=== PATIENT | female | born 1945 | race Caucasian/White ===

== ENCOUNTER → 2018-02-17 | Outpatient (CLI) | payer MEDICARE | END | disposition home or self-care (01) | LOC: RAH 15:21 | PROVIDERS: ATTEND Internal Medicine | DX: Z12.31 Encounter for screening mammogram for malignant neoplasm of breast (principal) | CPT/HCPCS: 77067 ==

== ENCOUNTER → 2018-03-27 | Outpatient (CLI) | payer MEDICARE | END | disposition home or self-care (01) | LOC: RAH 10:51 | PROVIDERS: ATTEND Internal Medicine | DX: M47.895 Other spondylosis, thoracolumbar region (principal) | CPT/HCPCS: 71046 ==

== ENCOUNTER → 2018-11-21 | Outpatient (CLI) | payer MEDICARE | END | disposition home or self-care (01) | LOC: RAH 10:33 | PROVIDERS: ATTEND Internal Medicine | DX: M47.812 Spondylosis without myelopathy or radiculopathy, cervical region (principal); M85.88 Other specified disorders of bone density and structure, other site; M25.78 Osteophyte, vertebrae; M48.02 Spinal stenosis, cervical region | CPT/HCPCS: 72040 ==

== ENCOUNTER → 2019-06-01 | Outpatient (CLI) | payer MEDICARE, OTHER | END | disposition home or self-care (01) | LOC: RAH 09:46 | PROVIDERS: ATTEND Internal Medicine | DX: Z12.31 Encounter for screening mammogram for malignant neoplasm of breast (principal) | CPT/HCPCS: 77067 ==

== ENCOUNTER → 2019-11-24 | Outpatient (CLI) | payer MEDICARE, OTHER | END | disposition home or self-care (01) | LOC: RAH 16:03 | PROVIDERS: ATTEND Internal Medicine | DX: M25.571 Pain in right ankle and joints of right foot (principal); M79.604 Pain in right leg; W19.XXXA Unspecified fall, initial encounter | CPT/HCPCS: 73590; 73610 ==

== ENCOUNTER → 2020-07-08 | Outpatient (CLI) | payer MEDICARE, OTHER | END | disposition home or self-care (01) | LOC: RAH 13:12 | PROVIDERS: ATTEND Internal Medicine | DX: Z12.31 Encounter for screening mammogram for malignant neoplasm of breast (principal) | CPT/HCPCS: 77067 ==

== ENCOUNTER → 2023-01-08 | Outpatient (CLI) | payer MEDICARE, OTHER ==
[~2023-01-08] MED LIST: GADOTERATE MEGLUMINE 10 MMOL/20 ML VIAL IV ONE
== END | disposition home or self-care (01) ==
LOC: RAH 10:46
PROVIDERS: ATTEND Internal Medicine
DX: N64.89 Other specified disorders of breast (principal)
CPT/HCPCS: C8908; A9575; 77049

== ENCOUNTER → 2023-11-25 | Outpatient (CLI) | payer OTHER | END | disposition home or self-care (01) | LOC: RAH 09:04 | PROVIDERS: ATTEND Internal Medicine | DX: Z12.31 Encounter for screening mammogram for malignant neoplasm of breast (principal) | CPT/HCPCS: 77067 ==

== ENCOUNTER → 2024-05-12 | Outpatient (CLI) | payer OTHER ==
[2024-05-12] MEDS: REGADENOSON 0.4 MG/5 ML PF SYG IVP ONE (10:29)
== END | disposition home or self-care (01) ==
LOC: SHCH 08:22
PROVIDERS: ATTEND Internal Medicine Cardiovascular Disease
DX: I20.9 Angina pectoris, unspecified (principal)
CPT/HCPCS: 78452; 93017; J2785; A9500 ×2; 96374

== ENCOUNTER 2024-10-14 05:58 | Day surgery (SDC) | payer OTHER ==
[2024-10-12 12:59] LABS: BASOPHILS # (AUTO) 0.08 K/uL (0.00-0.20); BASOPHILS % (AUTO) 1.1 % (0.0-5.0); EOSINOPHILS # (AUTO) 0.23 K/uL (0.00-0.70); EOSINOPHILS % (AUTO) 3.1 % (0.0-8.0); HEMATOCRIT 42.3 % (36-48); IMMATURE GRANULOCYTE ABSOLUTE 0.02 K/uL (0-1); LYMPHOCYTES # (AUTO) 2.1 K/uL (1.0-4.8); LYMPHOCYTES % (AUTO) 27.9 % (21.0-51.0); MEAN CORPUSCULAR HEMOGLOBIN 30.9 pg (27.0-33.0); MEAN CORPUSCULAR HGB CONC 32.2 g/dL (32.0-36.0); MEAN CORPUSCULAR VOLUME 96.1 fL (79-99); MONOCYTES # (AUTO) 0.6 K/uL (0.1-1.0); MONOCYTES % (AUTO) 8.5 % (3.0-13.0); NEUTROPHILS # (AUTO) 4.4 K/uL (1.8-7.7); NEUTROPHILS % (AUTO) 59.1 % (40.0-77.0); PLATELET COUNT (AUTO) 204 K/uL (130-400); RED CELL DISTRIBUTION WIDTH 12.3 % (11.0-15.5); WHITE BLOOD COUNT (AUTO) 7.4 K/uL (4.8-10.8)
[2024-10-12 13:03] LABS: APPEARANCE,URINE CLEAR (CLEAR); BILIRUBIN,URINE NEGATIVE (NEGATIVE); COLOR,URINE LIGHT-YELLOW (YELLOW); GLUCOSE, URINE (UA) NEGATIVE (NEGATIVE); KETONES,URINE NEGATIVE (NEGATIVE); LEUKOCYTE ESTERASE ,URINE NEGATIVE Leu/uL (NEGATIVE); NITRATE,URINE NEGATIVE (NEGATIVE); OCCULT BLOOD,URINE NEGATIVE (NEGATIVE); PH,URINE 5.5 (5.0-8.0); PROTEIN,URINE NEGATIVE (NEGATIVE); UROBILINOGEN,URINE 0.2 mg/dL (0.2-1.0)
[2024-10-12 13:08] LABS: ADD UA MICROSCOPIC NO
[2024-10-12 13:09] LABS: CREATININE 0.9 mg/dL (0.5-1.0)
[2024-10-12 13:12] LABS: PROTHROMBIN TIME 10.3 SEC (9.6-11.6)
[2024-10-12 13:13] LABS: INR 0.95 (0.85-1.15)
[2024-10-12 13:14] LABS: PARTIAL THROMBOPLASTIN TIME 26.1 SEC (26.3-35.5)
--- NOTE | 2024-10-12 13:22 | EKG ---
[facility] Test Date: 2024-10-12 Test Time: 13:46:40 Pat Name: BUNNY GIBSON Department: [facility] Room: Gender: F Patient Advocate: [id number] : 1945 Requested By: DEDRICK ZULETA Order Number: [id number] Reading MD: Thierry Olivera Measurements Intervals [place] Rate: 62 P: 42 OH: 224 QRS: -34 QRSD: 92 T: 39 QT: 413 QTc: 421 Interpretive Statements Sinus rhythm Prolonged OH interval Left axis deviation Compared to ECG 07/10/2016 09:44:10 Left-axis deviation now present Sinus bradycardia no longer present Electronically Signed On 10-12-2024 19:56:17 BATCH RECORDS CLERK by Thierry Olivera Please click the below link to view image of tracing.
[2024-10-12 13:38] VITALS: BP 159/78; PULSE 76; RESP 18; TEMP 97.2
--- NOTE | 2024-10-12 15:37 | HMCIMG ---
CHEST 1VW HISTORY: Preop COMPARISON: 03/27/2018 FINDINGS: A frontal projection of the chest was obtained. No acute pulmonary infiltrates is seen. The heart is normal in size. Prominent interstitial markings are seen. No evidence of aortic calcification is seen. IMPRESSION: 1. No acute pulmonary infiltrate is seen.
[~2024-10-14] VITALS: Ht 160 cm; Wt 71.7 kg
[2024-10-14] VITALS (11 sets, daily range): BP systolic 105–156; BP diastolic 44–81; PULSE 58–75; RESP 14–17; TEMP 97.2–98
[~2024-10-14 05:58] MED LIST changes: +AMLO2.5T4 PO; +ASPI-1197 PO; +BACL10TA PO; +BIOTIN PO; +BREYNA IH; +CALC-909 PO; +COLLAGEN PO; -GADOTERATE MEGLUMINE 10 MMOL/20 ML VIAL IV ONE; +HYDR25TA PO; +ISOS30TA92 PO; +LEVO75CA5 PO; +LORA10TA7 PO; +METO-408 PO; +NITR0.4T50 SL; +OLME40TA18 PO; +PANT40TA54 PO; +RALO60TA13 PO; +SIMV-46 PO; +[UNRECOGNIZED DRUG - OTHER] PO
[2024-10-14] MEDS: 0.9%NACL 1000ML 1,000 ML IV SCH (06:41)
[2024-10-14] MEDS ORDERED: IOHEXOL 350 MG/ML 100ML INFUS..BTL IV ONE (07:27)
[2024-10-14] MEDS ORDERED: MIDAZOLAM HCL 1 MG/ML 2ML VIAL ONE (07:27)
[2024-10-14] MEDS ORDERED: LIDOCAINE HCL 400MG/20ML VIAL ONE (07:27)
[2024-10-14] MEDS ORDERED: FENTanyl CITRate PF 50 MCG/1 ML 2ML VIAL ONE (07:27)
[2024-10-14] MEDS ORDERED: BIVALIRUDIN 250 MG/VIAL IV ONE (07:27)
[2024-10-14] MEDS ORDERED: IOHEXOL-350 50ML VIAL IV ONE (07:28)
[2024-10-14] MEDS ORDERED: HEParin 10,000 UNIT/10ML (1,000 UNIT/ML) VIAL ONE (07:28)
[2024-10-14] MEDS ORDERED: HEParin-NS 1,000 UNIT/500 ML 1,000 ML IV ONE (07:28)
[2024-10-14] MEDS ORDERED: NITROGLYCERIN 50MG VIAL ONE (07:28)
[2024-10-14] MEDS ORDERED: 0.9%NACL 1000ML 1,000 ML IV SCH (08:30)
--- NOTE | 2024-10-14 08:38 | PRN ---
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 A 6 Czech arterial sheath was inserted in the right femoral artery using a micropuncture technique with ultrasound guidance. The arterial sheath was aspirated and flushed. A 6 Czech pigtail catheter was then advanced over a J-tipped guidewire to the ascending aorta and was prolapsed into the left ventricle. The catheter was aspirated and flushed and pressure measurements were obtained. A left ventriculogram was then performed in a 30 CLAY projection. A pullback procedure was then performed, and this catheter was removed over a J-tipped guidewire. A 6F JL-4 was then advanced to the ascending aorta over a J-tipped guidewire, was aspirated and flushed, and was used for selective left coronary angiograms in multiple obliquities. A JR-4 was advanced in a similar fashion to the ascending aorta over a J-tipped guidewire and was used for selective right coronary angiograms in multiple obliquities with findings as outlined below. A right common femoral angiogram was performed to assess suitability for Perclose suture closure and the Perclose device was deployed in standard fashion. Perclose suture closure was successful without bleeding or hematoma. The patient tolerated the procedure well and was returned to the holding area in stable condition. FINDINGS: LEFT HEART HEMODYNAMICS: Patient's LVEDP prior to LV-gram was 9 mm of mercury and unchanged after the LV- gram. There was no aortic valve gradient on pullback procedure. LEFT VENTRICULOGRAM: A left ventriculogram in a 30 degree CLAY projection demonstrated normal segmental wall motion and an LVEF of 70%. There was no evidence of angiographic mitral regurgitation. CORONARY ANGIOGRAM: LEFT MAIN: The left main coronary was normal and there was no dampening or ventricularization of the pressure waveform. LEFT ANTERIOR DESCENDING: The left anterior descending had a 30% ostial stenosis and a 30% tubular mid LAD stenosis. Otherwise the LAD and diagonal branches were normal. LEFT CIRCUMFLEX: The left circumflex was nondominant and normal as were the obtuse marginal branches. RAMUS INTERMEDIATE BRANCH: There was no ramus intermediate branch. RIGHT CORONARY ARTERY: The right coronary artery had a 30% mid stenosis, was dominant, and normal as were the PDA and posterolateral ventricular branches. IMPRESSION: Angina pectoris with nonobstructive coronary artery disease. 30% ostial LAD stenosis, 30% mid LAD stenosis, and 20% mid RCA stenosis only. Normal LV systolic function with LVEF of 70% and normal wall motion. No angiographic mitral regurgitation. No aortic stenosis. RECOMMENDATION: Continue oral nitrates if they resulted in symptomatic improvement. Risk factor modification. Begin a program of aerobic exercise and weight loss. COMPLICATIONS OF PROCEDURE: None, the patient tolerated the procedure well and was returned to her room in stable condition. HEMOSTASIS: Perclose suture closure was successful without bleeding or hematoma. ESTIMATED BLOOD LOSS: Less than 10 mL. CONTRAST TOTAL: 115 mL. MANOLO ZULETA MD Oct 14, 2024 08:38
== END 2024-10-14 12:10 | disposition home or self-care (01) ==
LOC: DAH 05:58
PROVIDERS: ATTEND Internal Medicine Cardiovascular Disease
DX: R94.39 Abnormal result of other cardiovascular function study (principal); I25.118 Atherosclerotic heart disease of native coronary artery with other forms of angina pectoris; R00.1 Bradycardia, unspecified; I10 Essential (primary) hypertension; E78.5 Hyperlipidemia, unspecified; E03.9 Hypothyroidism, unspecified; Z79.82 Long term (current) use of aspirin; Z79.01 Long term (current) use of anticoagulants; Z79.899 Other long term (current) drug therapy
CPT/HCPCS: 80048; 85025; 85610; 85730; 81003; 36415 ×2; 71045; 93005; 93458; 83880; C1894 ×2; C1760; J3010; J3490 ×2; J7030; J2250; J1644; Q9967 ×2; A4215; A4222; A4221; A4663; A4216; A4606; Q9965; A4223 ×3; 96360; 96361; 99156; 99157; J0583

== ENCOUNTER → 2025-02-25 | Outpatient (CLI) | payer OTHER ==
[~2025-02-25] MED LIST changes: -LEVO75CA5 PO; +LEVO75CA6 PO
--- NOTE | 2025-02-25 12:10 | HMCIMG ---
MAMMO SCREENING BILATERAL HISTORY: Screening mammogram. COMPARISON: 11/25/2023 TECHNIQUE: Bilateral screening mammogram with CAD was performed with craniocaudal and mediolateral oblique projections. FINDINGS: The breasts are extremely dense which lowers the sensitivity of mammogram. 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 If needed, MRI may be performed per referring physician request. There is no evidence of a dominant mass, or suspicious microcalcification. There is no evidence of nipple retraction or skin thickening. IMPRESSION: 1. Stable mammogram. Patient was entered into a reminder system with a target due date for their next mammogram. BI-RADS: CATEGORY 2: BENIGN FINDINGS Recommend monthly self breast exam as well as annual clinical examination. A negative x-ray should not delay biopsy if a dominant or clinically suspicious mass is present, since 8-10% of cancers are not identified by mammography. Dense breasts particularly, may obscure an underlying neoplasm. Some of these may be detected clinically and therefore, clinical examination is an essential part of breast evaluation.
== END | disposition home or self-care (01) ==
LOC: RAH 10:53
PROVIDERS: ATTEND Internal Medicine
DX: Z12.31 Encounter for screening mammogram for malignant neoplasm of breast (principal); R92.30 Dense breasts, unspecified
CPT/HCPCS: 77067

== ENCOUNTER → 2025-06-29 | Outpatient (CLI) | payer OTHER ==
--- NOTE | 2025-06-29 17:51 | HMCIMG ---
EXAM: CT Chest Without Intravenous Contrast. CLINICAL HISTORY: 79-year-old female with chronic obstructive pulmonary disease. TECHNIQUE: Axial computed tomography images of the chest without intravenous contrast. Dose reduction technique was used including one or more of the following: automated exposure control, adjustment of mA and kV according to patient size, and/or iterative reconstruction. CONTRAST: None. COMPARISON: None provided. FINDINGS: LUNGS: No pulmonary mass. No focal airspace consolidation. PLEURAL SPACES: No pleural effusion. No pneumothorax. HEART AND MEDIASTINUM: No cardiomegaly. No significant pericardial effusion. Atherosclerotic coronary arteries. LYMPH NODES: Small mediastinal lymph nodes. CHEST WALL AND UPPER ABDOMEN: The upper abdominal solid organs are unremarkable. The chest wall is unremarkable. BONES: Mild degenerative changes of the thoracic spine. No acute osseous abnormality. Atherosclerotic aorta. IMPRESSION: 1. No acute intra-thoracic abnormality. /[place]
== END | disposition home or self-care (01) ==
LOC: RAH 14:25
PROVIDERS: ATTEND Internal Medicine
DX: J44.9 Chronic obstructive pulmonary disease, unspecified (principal); I70.0 Atherosclerosis of aorta; I25.10 Atherosclerotic heart disease of native coronary artery without angina pectoris; M47.814 Spondylosis without myelopathy or radiculopathy, thoracic region
CPT/HCPCS: 71250